=== PATIENT | female | born 1955 | race Caucasian/White ===

== ENCOUNTER 2016-12-04 13:09 | Inpatient (IN) ==
[2016-12-04] MEDS ORDERED: PHENERGAN IV ONE ×3 (15:04→15:25)
[2016-12-04] MEDS ORDERED: SODIUM CHLORIDE 0.9% INJ ONE ×3 (15:04→15:25)
[2016-12-04] MEDS ORDERED: MORPHINE IV ONE ×2 (15:04→18:19)
--- NOTE | 2016-12-04 15:04 | PROVIDER DOCUMENTATION ---
HPI-Rash/Wound/ReCheck - General Chief Complaint: Abscess Stated Complaint: GENERAL Time Seen by Provider: 12/04/16 14:11 Source: patient Allergies/Adverse Reactions: Allergies Allergy/AdvReac Type Severity Reaction Status Date / Time No Known Allergies Allergy Verified 12/04/16 14:59 Home Medications: Home Medication List Medication Instructions Recorded Confirmed Last Taken Type No Home Medications 12/04/16 12/04/16 Unknown History - History of Present Illness-Dermatology Nature of Presenting Problem: 61 y/o WF c/o abscess to R pubic region x 1 week, worse in last 2 days. Pt states it started as what looked like a spider bite, then spread to her RLQ of her abdomen and is now extremely painful. States drained on her own at home during the first few days, but unable to drain it now. Review of Systems - Adult - REVIEW OF SYSTEMS - ADULT Constitutional: reports: no symptoms reported. denies: chills, fever Eyes: reports: no symptoms reported. denies: blurred vision, double vision Ears, Nose, Mouth & Throat: reports: no symptoms reported. denies: ear pain, nose pain Cardiovascular: reports: no symptoms reported. denies: chest pain, palpitations Respiratory: reports: no symptoms reported. denies: dyspnea on exertion, shortness of breath Gastrointestinal: reports: see HPI, abdominal pain. denies: constipation, diarrhea, nausea, vomiting Genitourinary: reports: no symptoms reported. denies: dysuria, frequency Musculoskeletal: reports: no symptoms reported. denies: joint pain, muscle aches Integumentary: reports: see HPI, other. denies: nail changes Neurological: reports: no symptoms reported. denies: numbness, paresthesia Psychiatric: reports: no symptoms reported Endocrine: reports: no symptoms reported. denies: cold intolerance, heat intolerance Hematologic/Lymphatic: reports: no symptoms reported. denies: easy bruising, prolonged bleeding Allergic/Immunologic: reports: no symptoms reported All Other Systems: Reviewed and Negative Past History - Adult - PAST MEDICAL HISTORY-ADULT Review of Records: reports: Nursing Assessment Review, Medications Reviewed - SOCIAL HISTORY Smoking: denies Living Situation: family Physical Exam-General - PHYSICAL EXAM-ADULT Initial Vital Signs Reviewed: Yes - CONSTITUTIONAL General Appearance: alert, mild distress - EYES Eyes: pink conjunctivae - HEAD, EARS, NOSE, MOUTH & THROAT HENMT: normocephalic/atraumatic, moist mucous membranes - NECK Neck: supple, normal inspection - RESPIRATORY Respiratory: lungs clear, normal breath sounds. negative: crackles, rales, rhonchi - CARDIOVASCULAR Cardiovascular: tachycardia. negative: regular rate, rhythm, bradycardia - GASTROINTESTINAL (ABDOMEN) Abdominal Exam: normal bowel sounds, soft, other (20 cm x 12 cm of redness and induration to RLQ, extending to R labia majora). negative: distended, guarding , rigid - LYMPHATIC Lymphatic: inguinal node tender - MUSCULOSKELETAL Back Exam: no CVA tenderness Extremity: normal gait - SKIN Integumentary: normal color, normal turgor, warm/dry - NEUROLOGIC Neurologic: negative: aphasia - PSYCHIATRIC Psych/Mental Status: normal mood/affect, normal thought content, normal thought process, oriented x 3 Progress - PLAN OF CARE/RESULTS Progress/Plan/Lab Results: Laboratory Tests 12/04/16 12/04/16 12/04/16 15:12 15:12 15:12 WBC 13.52 H RBC 4.70 Hgb 13.7 Hct 40.8 MCV 86.8 MCH 29.1 MCHC 33.6 RDW Std Deviation 13.2 Plt Count 211 MPV 10.0 Immature Gran % (Auto) 0.2 Neut % (Auto) 79.6 H Lymph % (Auto) 9.8 L Major % (Auto) 10.1 H Eos % (Auto) 0.2 Baso % (Auto) 0.1 Immature Gran # (Auto) 0.03 Neut # (Auto) 10.76 H Lymph # (Auto) 1.32 Major # (Auto) 1.36 H Eos # (Auto) 0.03 Baso # (Auto) 0.02 Sodium 135 L Potassium 4.3 Chloride 96 L Carbon Dioxide 22 L Anion Gap 17 BUN 16 Creatinine 0.9 Estimated GFR/1.73 m2 > 60 BUN/Creatinine Ratio 18 Glucose 114 H Calculated Osmolality 272 Calcium 9.3 Total Bilirubin 1.00 AST 11 ALT 8 L Alkaline Phosphatase 107 H Total Protein 7.5 Albumin 3.8 Globulin 3.7 Albumin/Globulin Ratio 1.0 Plasma Lactate 2.5 H Orders Category Date Time Status Saline Loc NOW Care 12/04/16 14:[address] ABD/PELVIS W/ IV CONT ONLY [CT] Stat Exams 12/04/16 15:26 Taken BLOOD CULTURE [BLDCUL] Stat Lab 12/04/16 17:02 Results CBC WITH ELECTRONIC DIFF [HEME] Stat Lab 12/04/16 15:12 Completed CMP [COMPREHENSIVE METABOLIC PANEL] [CHEM] Stat Lab 12/04/16 15:12 Completed LACTATE, PLASMA [CHEM] Stat Lab 12/04/16 15:12 Completed 0.9% Sodium Chloride Inj [Ns] 1,000 ml Med 12/04/16 16:34 Discontinued IV 999 mls/hr CefTRIAXONE 2 GM/NS [Rocephin 2 gm/Ns] 50 ml Med 12/04/16 16:34 Discontinued IV NOW Ketorolac [Toradol] Med 12/04/16 15:25 Discontinued 30 mg IV NOW ONE Meropenem [Merrem] 1 gm Med 12/04/16 16:39 Discontinued 0.9% Sodium Chloride Inj [Ns] 50 ml IV NOW Morphine Med 12/04/16 15:04 Discontinued 2 mg IV NOW ONE Promethazine [Phenergan] Med 12/04/16 15:25 Discontinued 12.5 mg IV NOW ONE Promethazine [Phenergan] Med 12/04/16 15:04 Discontinued 25 mg IV NOW ONE Promethazine [Phenergan] Med 12/04/16 15:18 Discontinued 25 mg IV NOW ONE Sodium Chloride 0.9% Med 12/04/16 15:04 Discontinued 10 ml INJ NOW ONE Sodium Chloride 0.9% Med 12/04/16 15:18 Discontinued 10 ml INJ NOW ONE Sodium Chloride 0.9% Med 12/04/16 15:25 Discontinued 10 ml INJ NOW ONE Vancomycin 1 gm/Ns 250 ml Med 12/04/16 16:39 Discontinued IV NOW Vital Signs Temp Pulse Resp BP Pulse Ox 12/04/16 13:13 98.1 F 109 H 18 135/79 100 No Known Allergies Allergy (Verified 12/04/16 14:59) No Home Medications 12/04/16 Laboratory 12/04/16 12/04/16 12/04/16 15:12 15:12 15:12 WBC 13.52 H RBC 4.70 Hgb 13.7 Hct 40.8 MCV 86.8 MCH 29.1 MCHC 33.6 RDW Std Deviation 13.2 Plt Count 211 MPV 10.0 Immature Gran % (Auto) 0.2 Neut % (Auto) 79.6 H Lymph % (Auto) 9.8 L Major % (Auto) 10.1 H Eos % (Auto) 0.2 Baso % (Auto) 0.1 Immature Gran # (Auto) 0.03 Neut # (Auto) 10.76 H Lymph # (Auto) 1.32 Major # (Auto) 1.36 H Eos # (Auto) 0.03 Baso # (Auto) 0.02 Sodium 135 L Potassium 4.3 Chloride 96 L Carbon Dioxide 22 L Anion Gap 17 BUN 16 Creatinine 0.9 Estimated GFR/1.73 m2 > 60 BUN/Creatinine Ratio 18 Glucose 114 H Calculated Osmolality 272 Calcium 9.3 Total Bilirubin 1.00 AST 11 ALT 8 L Alkaline Phosphatase 107 H Total Protein 7.5 Albumin 3.8 Globulin 3.7 Albumin/Globulin Ratio 1.0 Plasma Lactate 2.5 H Discussed pt with Dr. Hewitt; she agreed with tx plan and admission, once CT results available. SEPSIS protocol initiated. Discussed admission with pt and family; they agreed with tx plan. - CT/MRI 1 CT Study: Abdomen, Pelvis Impression: See EMR Report (cellulitis. No abscess. Normal appendix. No bowel obstruction. Multiple bilateral renal stones. No hydronephrosis. -per Dr. Coates) - CONSULTS/PCP/HOSPITALIST Notification #1 *Consult/PCP/Hospitalist*: Dr. Rand Time Discussed: 18:26 Reason/Comments: sepsis, cellulitis Consult Disposition: Admit Departure - Departure Time of Disposition Order: 18:05 DIAGNOSIS: Renal stones Cellulitis Qualifiers: Site of cellulitis: trunk Site of cellulitis of trunk: abdominal wall Qualified Code(s): L03.311 - Cellulitis of abdominal wall Sepsis Qualifiers: Sepsis type: sepsis due to unspecified organism Qualified Code(s): A41.9 - Sepsis, unspecified organism DIAGNOSIS: (Ruled Out): Abscess Disposition: ADMITTED INPATIENT 09 Certified Medical Emergency: Emergent Condition: Stable Referrals: None,PCP [Primary Care Provider] - Attestation - Physician/ JIGNESH Attestation Patient care was provided by Advanced Practice Provider:: Yes Advanced Practice Provider:: Eulalia Dunlap Advanced Practice Provider documentation review:: The Mid-level provider documentation, treatment plan and medical decision making was reviewed by the physician who agrees with all treatment and medical decision making by the P.
[2016-12-04] MEDS ORDERED: TORADOL IV ONE (15:25)
[2016-12-04 15:34] LABS: MANUAL DIFF NEEDED? NO
[2016-12-04 15:46] LABS: BASO% 0.1 % (0.0-0.8); EOS# 0.03 X1000 (0.0-0.7); EOS% 0.2 % (0.0-10.0); HEMATOCRIT 40.8 % (37.0-47.0); HEMOGLOBIN 13.7 g/dL (12.0-16.0); IMM GRAN# 0.03 X1000 (0.0-0.04); IMM GRAN% 0.2 % (0.0-0.5); LYMPH# 1.32 X1000 (1.2-3.4); LYMPH% 9.8 % (20.5-51.1); MCH 29.1 PG (27-31); MCHC 33.6 g/dL (33-37); MCV 86.8 FL (81-99); MONO# 1.36 X1000 (0.11-0.59); MONO% 10.1 % (1.7-9.3); NEUT% 79.6 % (42.2-75.2); PLT 211 X1000 (130-400)
[2016-12-04 16:09] LABS: AGAP 17; ALBUMIN 3.8 g/dL (3.5-5.0); ALKALINE PHOSPHATASE 107 U/L (32-104); BUN 16 mg/dL (8-22); CALCIUM 9.3 mg/dL (8.8-10.2); CHLORIDE 96 mmol/L (98-107); COSMO 272; GOT 11 U/L (10-30); GPT 8 U/L (10-36); POTASSIUM 4.3 mmol/L (3.5-5.1); SODIUM 135 mmol/L (136-145); TCO2 22 mmol/L (25-35); TOTAL PROTEIN 7.5 g/dL (6.3-8.3)
[2016-12-04] MEDS ORDERED: NS 1,000 ML IV ONE ×2 (16:34→18:36)
[2016-12-04] MEDS ORDERED: ROCEPHIN 2 GM/NS 50 ML IV ONE (16:34)
[2016-12-04] MEDS ORDERED: VANCOMYCIN 1 GM/NS 250 ML IV ONE (16:39)
[2016-12-04] MEDS ORDERED: MERREM 1 GM in NS 50 ML IV ONE (16:39)
[2016-12-04] MEDS ORDERED: ZOFRAN ODT PO ONE (18:37)
[2016-12-04] MEDS ORDERED: TYLENOL PO ONE (18:37)
--- NOTE | 2016-12-04 20:14 | Diag Imaging Result Document ---
PROCEDURE NAME: CT ABD/PELVIS W/ IV CONT ONLY - 12/04/2016 CT ABDOMEN AND PELVIS WITH INTRAVENOUS CONTRAST FINDINGS: There is mild fatty infiltration of the liver. There are several tiny, hypodense hepatic lesions which may simply be cysts. The liver is mildly prominent. Normal spleen, pancreas, adrenal glands, and gallbladder. There are multiple bilateral renal stones. These have increased in size and number since the prior study of 05/29/11. No hydronephrosis. No aortic aneurysm. Moderate atherosclerosis. No bowel obstruction. Normal appendix. No abscess. The urinary bladder is distended and appears normal. The uterus has been removed. The ovaries are small or have been removed. No pelvic mass. There are subcutaneous inflammatory changes in the anterior right pelvic wall, extending to the upper right labia. No fluid collection. No abscess. No free air. There are only small inguinal lymph nodes. IMPRESSION : 1. Abdominal wall cellulitis, but no abscess. 2. Mildly prominent liver with what appears to be several tiny cysts. 3. Multiple bilateral renal stones which have increased in size and number since the prior exam. A preliminary report was given at 5:53 p.m.
[2016-12-04] MEDS ORDERED: NS 500 ML IV ONE (22:19)
[2016-12-05] MEDS ORDERED: VANCOMYCIN IV PER PHARMACY MISC SCH (00:14)
[2016-12-05] MEDS ORDERED: ZOFRAN IV PRN (00:14)
[2016-12-05] MEDS ORDERED: NS 1,000 ML IV SCH (00:14)
[2016-12-05] MEDS: MORPHINE IV PRN ×2 (00:17→06:05)
[2016-12-05] MEDS: SODIUM CHLORIDE 0.9% INJ SCH ×3 (00:27→23:05)
[2016-12-05] MEDS: PHENERGAN IV PRN (00:27)
[2016-12-05] MEDS: PROTONIX IV SCH ×2 (00:38→23:06)
[2016-12-05] MEDS: TORADOL IV SCH ×5 (00:38→23:05)
[2016-12-05] MEDS: LOVENOX SUBQ SCH (00:39)
[2016-12-05] MEDS ORDERED: VANCOMYCIN 1 GM/NS 250 ML IV ONE (02:00)
--- NOTE | 2016-12-05 02:36 | HISTORY AND PHYSICAL ---
PRIMARY CARE PROVIDER: Dr. Duncan Unger. CHIEF COMPLAINT: Abscess. HISTORY OF PRESENT ILLNESS: A 61-year-old female with no relevant past medical history presents to the emergency room complaining of swelling in the groin for the past week and 4 days. Stated that it started as a small pimple with a head. She thought that she had been bitten by a spider. She lanced it at home with initially draining. At any rate, over the next week or so, it began having increasing redness, pain and swelling. She has had nausea and vomiting as well as chills. She states that the pain is 10/10. It spreads from her right labia major extending upwards to her right lower quadrant. There is roughly 20 x 12 cm of redness and induration. She was given IV antibiotics as well as nausea medicine in the emergency room. A CT scan was obtained and ruled out abscess. She will be admitted for cellulitis for further evaluation and treatment. PAST MEDICAL HISTORY: Kidney stones. PAST SURGICAL HISTORY: Hysterectomy, tonsillectomy. SOCIAL HISTORY: Lives alone. 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 She quit smoking 5 years ago but prior to that had smoked cigarettes since the age of 16. She is a social drinker. Drinks 1-2 beers a week but states that this does not necessarily happen every week. Denies illicit drug use or abuse. FAMILY HISTORY: Both her mother and her father have had cerebrovascular accidents. They also have hypertension and hyperlipidemia. ALLERGIES: No known drug allergies. HOME MEDICATIONS: No home medications. REVIEW OF SYSTEMS: A 14-point review of systems conducted with patient. All negative except for listed above in the HPI. PHYSICAL EXAMINATION: VITAL SIGNS: Temperature 100.8, temperature max 102.5, pulse 95, respirations 16, blood pressure 85/54, MAP 70, oxygen saturation 95% on 2 L nasal cannula. GENERAL: This is a pleasant 61-year-old female lying in the ER stretcher in no acute distress. Seems somewhat lethargic related to previous pain medication and Phenergan administration for nausea. she answers all questions appropriately. She is in no acute distress at this time. HEENT: Head is atraumatic, normocephalic. Pupils equal, round, reactive to light. Extraocular eye movement is intact. Sclerae anicteric. Conjunctivae not pale. Oral mucosa is mildly dry and tacky. Otherwise normal ENT assessment. NECK: Supple. No JVD. No thyromegaly. Trachea is midline. CARDIAC: Regular rhythm. S1, S2 appreciated. No murmurs, gallops or rubs. LUNGS: Mildly decreased bilaterally. No rhonchi, wheezes, rales. Symmetric rise and fall respirations. ABDOMEN: Soft, nondistended. Tender in the right lower quadrant and suprapubic area with erythema, induration and warmth to this area. EXTREMITIES: No clubbing, cyanosis or edema. Decreased pedal pulses bilaterally. GENITOURINARY: The patient voids. On visualization, the patient's right labia majora was noted as having erythema and induration. SKIN: Warm, dry, and intact except for area of erythema and induration noted above in genitourinary and abdominal examination. NEUROLOGIC: Mildly lethargic related to pain and nausea medications. Awakens easily to verbal stimulus. Follows all commands. Is alert and oriented x4. Cranial nerves II through XII are grossly intact. DIAGNOSTIC DATA: CT of the abdomen and pelvis ruled out abscess, did note cellulitis. WBC 13.52, hemoglobin 13.7, hematocrit 40.8, platelet count 211. Sodium 135, potassium 4.3, chloride 96, carbon dioxide 22, BUN 16, creatinine 0.9, glucose 114. Plasma lactate on arrival was 2.5. After fluid bolusing, it is down to 0.9. ASSESSMENT AND PLAN: 1. Cellulitis of the right lower abdomen extending down into the right labia majora. The patient was given Rocephin, Merrem and vancomycin in the emergency room. Will continue Rocephin and vancomycin. Recheck CBC and BMP in a.m. 2. Sepsis secondary to #1. The patient's fever has been brought under control after fluid bolusing. Her plasma lactate is back to normal. On reassessment of the patient after bolusing, she appears to be euvolemic at this time. The patient, however, is not taking adequate intake by mouth. Will continue normal saline at 125 mL per hour with strict I's and O's. 3. Intractable pain secondary to #1. Will give Toradol 50 mg IV every 6 hours x2 days as the patient dyspnea on exertions not have any overt bleeding risk and is not in any type of acute or chronic renal failure that would cause NSAIDs to be contraindicated. Will also place morphine 2 mg IV every 3 hours p.r.n. on her medication profile for additional pain management. 4. Nausea and vomiting. Will alternate Phenergan and Zofran to control patient's nausea. Will also place her on Protonix 40 mg IV daily during her hospital stay to help with any gastritis secondary to nausea and vomiting, also as a precaution since the patient will be placed on 2 days of NSAID treatment. 5. Febrile illness secondary to #1. Will treat with Tylenol 650 every 6 hours. At this time, the Toradol will also be helpful in managing fevers. 6. Additional comments and orders. As noted above, the patient's laboratory data will be rechecked. She has been placed on antibiotics pending blood cultures. If the patient is not responding properly to antibiotics, will consider consulting German Tanner MD, infectious disease provider, for further help with antibiotic management. Will also place on Lovenox 40 mg subcutaneously every 24 hours for VTE prophylaxis. Further recommendations per patient's clinical course. Dictated by MERISSA Moreno for Mann Guajardo MD
[2016-12-05 06:22] LABS: MANUAL DIFF NEEDED? NO
[2016-12-05 07:15] LABS: CALCIUM 8.4 mg/dL (8.8-10.2); POTASSIUM 3.6 mmol/L (3.5-5.1)
[2016-12-05 07:17] LABS: BASO% 0.2 % (0.0-0.8); EOS# 0.04 X1000 (0.0-0.7); EOS% 0.3 % (0.0-10.0); HEMATOCRIT 33.2 % (37.0-47.0); IMM GRAN# 0.03 X1000 (0.0-0.04); IMM GRAN% 0.2 % (0.0-0.5); LYMPH# 0.87 X1000 (1.2-3.4); LYMPH% 6.5 % (20.5-51.1); MCH 29.3 PG (27-31); MCHC 33.1 g/dL (33-37); MCV 88.3 FL (81-99); MONO# 1.34 X1000 (0.11-0.59); MONO% 10.1 % (1.7-9.3); MPV 10.3 FL (7.4-10.4); NEUT% 82.7 % (42.2-75.2); PLT 173 X1000 (130-400); RBC 3.76 XMIL (4.2-5.4)
[2016-12-05] MEDS: NS 1,000 ML IV SCH ×3 (08:50→21:49)
--- NOTE | 2016-12-05 09:39 | PROGRESS NOTE ---
DATE: 12/05/2016 SUBJECTIVE: The patient notes she is feeling a little bit better. Still having pain but notes overall the pain is slightly improved. Denies any worsening of her redness or swelling. OBJECTIVE: Vital Signs: Reviewed. Temperature 100.5 degrees current, pulse 94, respiratory 20, BP 100/49, saturation 98% on 2 L. General: Patient is awake, alert. She is in no distress. She is pleasant to talk with. Speech is regular. Memory is intact. Neck: Supple. CV: Regular rate. Chest: Relatively clear. Abdomen: Soft, nondistended. Skin: Noted to have erythema and induration in the right lower abdominal quadrant and upper pelvic region. Unchanged from yesterday's exam. PLAN: We will decrease her IV fluids to 75. We will continue her on Toradol p.r.n., vancomycin, and Rocephin. We will add [place] for pain. Continue Lovenox. Further orders as needed.
[2016-12-05] MEDS: TYLENOL PO PRN (12:13)
[2016-12-05] MEDS ORDERED: MOTRIN PO ONE (14:51)
[2016-12-05] MEDS: ROCEPHIN 1 GM/NS 50 ML IV SCH (15:18)
[2016-12-05] MEDS ORDERED: MORPHINE IV ONE (15:55)
[2016-12-05] MEDS: VANCOMYCIN 1,350 MG in NS 250 ML IV SCH (20:31)
--- NOTE | 2016-12-05 23:50 | HISTORY AND PHYSICAL ---
HISTORY: Ms. Sheldon is a 61-year-old white female, 4, para 4, who was admitted to [facility] by hospitalist due to cellulitis of the groin. The patient reports having pustule a few days ago which has progressively worsened. The patient reports yesterday having fevers and chills and having pain in her groin. The patient was admitted last evening. White count was 13,000 with a fever of 102.7. A CT scan was performed which showed cellulitis but no distinct abscess. The patient was started on vancomycin as well as Rocephin. The patient denies any history of previous infections. The patient denies history of diabetes and has a family physician who does routine diabetic testing. PAST MEDICAL HISTORY: None. PAST SURGICAL HISTORY: Vaginal hysterectomy per Dr. Noe. ALLERGIES: None known. SOCIAL HISTORY: Patient is a smoker. 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 PHYSICAL EXAMINATION: GENERAL: White female in no apparent distress. VITAL SIGNS: Temperature 99.5. T max was 103. ABDOMEN: Soft and nontender. GENITOURINARY: External genitalia reveals cellulitis extending from the right labia into the right groin and over to the right hip that was tender to exam. There was no area that pointed and no distinct fluctuance, however, I could not identify any area that was a pustule or any area of drainage. No evidence of Bartholin's abscess or follicular abscess as origin. PLAN: Right now I agree with current management. Blood cultures are pending. The patient does report her symptoms have improved and the nurses objectively say that erythema has improved throughout the day. The margins of the erythema were marked with skin marker. I did discuss surgery with the patient and her family should the condition worsen although right now with the cellulitis, I think surgery would be of questionable benefit without any area of obvious fluctuance. We will reevaluate patient in the morning. I did discuss the patient with Dr. Noe who will see her in the morning at some point. The patient will be made n.p.o. pranav.
[2016-12-06] MEDS: LOVENOX SUBQ SCH (00:15)
[2016-12-06] MEDS: PROTONIX IV SCH (05:28)
[2016-12-06] MEDS: TORADOL IV SCH ×4 (05:29→17:13)
[2016-12-06 05:36] LABS: HEMATOCRIT 31.6 % (37.0-47.0); HEMOGLOBIN 10.4 g/dL (12.0-16.0); MCHC 32.9 g/dL (33-37); MPV 10.4 FL (7.4-10.4); RBC 3.59 XMIL (4.2-5.4)
[2016-12-06 05:51] LABS: ALBUMIN 2.4 g/dL (3.5-5.0); CALCIUM 8.3 mg/dL (8.8-10.2); MAGNESIUM 1.7 mg/dL (1.5-2.7); POTASSIUM 3.5 mmol/L (3.5-5.1); TOTAL BILIRUBIN 0.4 mg/dL (0.20-1.00); TOTAL PROTEIN 5.3 g/dL (6.3-8.3)
[2016-12-06] MEDS: NS 1,000 ML IV SCH ×2 (06:57→12:34)
[2016-12-06] MEDS ORDERED: DILAUDID PO PRN (08:19)
--- NOTE | 2016-12-06 08:44 | PROGRESS NOTE ---
DATE: 12/06/2016 SUBJECTIVE: The patient notes she is feeling tremendously better this morning. Denies any current fevers or chills. Denies any chest pain. States that her pain is tremendously improved. Her redness is improved. Notes that she is now able to get out of bed to go to the restroom without intense excruciating pain. Denies any nausea. OBJECTIVE: Vital Signs: Temp 99, pulse 82, respiratory 20, BP 119/64, satting 100% on room air. General: Patient is a well developed female, who is currently in no respiratory distress. She is awake, alert. Neck: Supple. CV: Regular rate. Chest: Relatively clear. Skin: She is noted to have much less erythema; it is less than it was yesterday. Erythema is not as dark. It is no longer touching the blind that was demarcating the outside border of the redness. It is also much less tender. ASSESSMENT: 1. Cellulitis, right lower abdomen, extending to the right labia majora, definitely improving. 2. Fever. Patient was noted to have significant fever yesterday at 103. It appears that her fever has broken. She has been afebrile for the past 8 or so hours. 3. Intractable pain, much improved. 4. Nausea and vomiting, resolved. 5. Leukocytosis. 6. Mild protein calorie malnutrition. PLAN: Given the fact the patient is currently afebrile, her erythema and edema of the area is definitely decreased, her pain is increased, it certainly is much less likely that she will require I and D. At this point, will allow her to begin to drink and continue her on vancomycin, continue Rocephin. I definitely appreciate LOOP SEWER's input yesterday. We will change the [place] to Dilaudid to see if this will help with her pain any better.
[2016-12-06] MEDS: TYLENOL PO PRN ×2 (09:22→17:10)
--- NOTE | 2016-12-06 09:33 | PROGRESS NOTE ---
DATE: 12/06/2016 SUBJECTIVE: Patient is alert and oriented x3. She is resting in bed, eating breakfast. T-max this morning is 100.6 which is down from 102.7 yesterday. Patient states that she is feeling better. She feels that the swelling is going down in the cellulitis region. ASSESSMENT AND PLAN: Agree with intravenous antibiotic therapy as chosen by Dr. Tenorio. I agree with continued intravenous antibiotic therapy until afebrile 24 hours and then possible change to oral at that time. We will continue to follow along.
[2016-12-06] MEDS: ROCEPHIN 1 GM/NS 50 ML IV SCH (17:04)
[2016-12-06] MEDS: NORCO-10 PO PRN (17:10)
[2016-12-06] MEDS: VANCOMYCIN 1,350 MG in NS 250 ML IV SCH (21:55)
[2016-12-07] MEDS: SODIUM CHLORIDE 0.9% INJ SCH (00:37)
[2016-12-07] MEDS: PROTONIX IV SCH (00:37)
[2016-12-07] MEDS: LOVENOX SUBQ SCH (00:37)
[2016-12-07] MEDS: NS 1,000 ML IV SCH (00:40)
[2016-12-07] MEDS: NORCO-10 PO PRN ×4 (04:53→19:27)
--- NOTE | 2016-12-07 08:34 | PROGRESS NOTE ---
DATE: 12/07/2016 SUBJECTIVE: The patient notes that she is feeling a lot better this morning. She is able to sit up with much less pain, although she is still hurting some. Notes the pain medication works. She states that she has been really anxious last night. Did not sleep well. She was afraid that she may have to have surgery this morning to drain the area. OBJECTIVE: Vital Signs: Reviewed. Temperature 98 degrees, pulse 80, respiratory rate 18, blood pressure 131/72, sat 99% on room air. General: Patient well developed, well nourished. She is currently in no real respiratory distress. She is awake, alert, oriented. Neck: Supple. Cardiovascular: Regular rate. Chest: Relatively clear. Abdomen: Soft. Skin: She is noted to have much less erythema than she did yesterday morning. It is on a much decreased from the previous marked area. It has less warmth, less tenderness. ASSESSMENT: 1. Cellulitis of the right lower abdomen, extending to the right labia majora that continues to improve. She currently is on Rocephin and vancomycin. We will talk with Dr. Tanner, Infectious Disease, to get his opinion home medication therapy. Certainly feel as though we can stop the vancomycin at this point. 2. Pain continues to improve. 3. Nausea and vomiting, resolved. 4. Fever. Patient's T-max yesterday was 100.6, which is a definite improvement from the day before. 5. Sepsis, secondary to cellulitis of unknown origin. PLAN: We will continue patient on current medications. She is tolerating p.o. pain medications well. Hopefully, Dr. Tanner will have recommendations for p.o. antibiotics and home in the next day or so.
[2016-12-07] MEDS: ROCEPHIN 1 GM/NS 50 ML IV SCH (15:11)
[2016-12-07] MEDS: VANCOMYCIN 1,350 MG in NS 250 ML IV SCH (20:31)
[2016-12-08] MEDS: LOVENOX SUBQ SCH ×2 (00:53→23:53)
[2016-12-08] MEDS: PROTONIX IV SCH (00:57)
[2016-12-08] MEDS: NORCO-10 PO PRN ×4 (00:57→23:49)
[2016-12-08] MEDS: TYLENOL PO PRN (10:34)
[2016-12-08] MEDS: ROCEPHIN 1 GM/NS 50 ML IV SCH (15:55)
--- NOTE | 2016-12-08 17:47 | PROGRESS NOTE ---
DATE: 12/08/2016 SUBJECTIVE: Patient states she is feeling a lot better. She is able to sit and move with much less pain although she still hurts some. She has had some anxiety over the last 24 hours and has not slept well in the hospital. OBJECTIVE: Vital Signs: Blood pressure is 131/66 with a heart rate of 56, respirations are 20, temperature is 98.2 degrees oral with room air saturations of 97%. Cardiovascular: Regular rate and rhythm. S1, S2 appreciated. Pulmonary: Breath sounds are clear. No increased work of breathing noted. Gastrointestinal: Abdomen is soft, nontender, nondistended with bowel sounds in all 4 quadrants. Extremities: No clubbing, cyanosis, or edema. Calves are nontender. Pulses are palpable x4. ASSESSMENT: 1. Cellulitis of the right lower abdomen extending to the right labia majora. It continues to improve. She is on Rocephin and vancomycin. We are waiting on Dr. Tanner with Infectious Disease to evaluate the patient for his opinion on home medical therapy. 2. Pain. This does continue to improve. 3. Nausea and vomiting resolved. 4. Fever. Patient's T-max was 99.6. 5. Sepsis secondary to cellulitis of unknown origin. We will continue with the patient's current medical therapy. Hopefully she will be evaluated by Dr. Tanner and he will feel that we can send her home on p.o. antibiotics, further treatments. Dictated by MERISSA Walsh for Javi Tenorio MD
--- NOTE | 2016-12-08 20:30 | CONSULTATION ---
DATE OF CONSULTATION: 12/08/2016 CONCLUSION: The patient has a has a severe cellulitis in the right mons pubis area involving the labia. RECOMMENDATIONS: I agree with decision to treat the patient with vancomycin. I have substituted Invanz for Rocephin. I think the patient should continue her IV antibiotics. My plan would be to send her home on IV antibiotics. I have consulted [facility] to supply the home IV antibiotic. I have requested that a PICC be placed and then I have requested that the patient see me in the office 3 weeks after discharge. DISCUSSION: The patient noticed swelling in the right mons pubis area and labia. She did not injure herself. She did not actually see an insect but she thinks she might have had an insect bite that started it. She has been admitted to the hospital. The area has decreased but it still remains erythematous, indurated and tender. The patient's laboratory studies show a creatinine of 1, a GFR of 57. CBC with a white count of 15,040, hemoglobin 10.4, and platelet count 184,000 . PAST MEDICAL HISTORY/REVIEW OF SYSTEMS: Eyes and ears: She denies difficulty hearing or seeing. Neck: No stiffness. Respiratory: No cough or shortness of breath. Cardiac: No chest pain or palpitations. GI: No nausea, vomiting, or diarrhea. : No dysuria or flank pain. Endocrine: She does not have diabetes or thyroid disease. Hematologic: She does not have anemia or bleeding tendency. Neurologic: She does not have seizures. She does not have motor or sensory loss. Integument: No rash. The remainder of the patient's review of systems was completed and was negative. PROCESSING TECH HISTORY: She is a 4, para 4, AB 0. She has had a hysterectomy. PREVIOUS HOSPITALIZATIONS AND OPERATIONS: She has had 4 labor and deliveries, a hysterectomy and tonsillectomy. MEDICAL DISEASES: Negative for diabetes mellitus and hypertension. INFECTIOUS DISEASE HISTORY: Positive for pneumonia. Negative for UTI. FAMILY HISTORY: Positive for hypertension, myocardial infarction and stroke. SOCIAL HISTORY: [place] She is . She has a dog as a pet. 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 HOME MEDICATIONS: She is on no home medications. She does not smoke cigarettes, drink alcohol products or abuse drugs. PHYSICAL EXAMINATION: Vital Signs: Temperature is 99.4 degrees, pulse 52, respirations 16, blood pressure 142/70. General: This is a healthy-appearing, middle-aged female. She is in no acute distress. Head/eyes/ears/nose/throat: She can hear my spoken words and see near objects. No drainage noted from the nose or ears. Neck: No meningismus. Lungs: Clear to auscultation. Cardiovascular: Regular heart rate. I did not hear a murmur. Abdomen: Soft, nontender. Pelvis: The patient had erythema and induration in the mons pubis and right labial area. Neurologic: The patient is alert. She can move her extremities. There is no tremor. Her sensation is intact to touch. Her memory, as regarding her medical history was good. Integument: No rash noted. PRESENT ILLNESS: The patient had a CT scan of the abdomen. It was read as showing abdominal wall cellulitis. Thank you for the consult.
[2016-12-08] MEDS: VANCOMYCIN 1,500 MG in NS 250 ML IV SCH (20:32)
[2016-12-08] MEDS ORDERED: INVANZ ONE (23:14)
[2016-12-08] MEDS ORDERED: NS 50 ML ONE (23:14)
[2016-12-08] MEDS ORDERED: INVANZ IV ONE (23:15)
[2016-12-08] MEDS: INVANZ 1 GM/NS 50 ML IV SCH (23:23)
[2016-12-08] MEDS: PROTONIX PO SCH (23:53)
[2016-12-09] MEDS: NORCO-10 PO PRN ×3 (05:11→21:18)
[2016-12-09] MEDS: PHENERGAN IV PRN ×3 (09:30→21:18)
[2016-12-09] MEDS ORDERED: ZOFRAN PO PRN ×2 (14:14→14:16)
[2016-12-09] MEDS ORDERED: NORCO-10 PO PRN (14:14)
[2016-12-09] MEDS: VANCOMYCIN 1,500 MG in NS 250 ML IV SCH (14:30)
--- NOTE | 2016-12-09 17:56 | PROGRESS NOTE ---
DATE: 12/09/2016 SUBJECTIVE: The patient states that she is feeling better. She seems to improve every day. She still has pain with movement and standing. She continues to complain of difficulty sleeping while in the hospital. OBJECTIVE: Vital Signs: Blood pressure is 139/68 with a heart rate of 54, respirations are 18, temperature is 98.8 degrees oral with room air saturations of 99%. Cardiovascular: Regular rate and rhythm. S1, S2 appreciated. Pulmonary: Breath sounds are clear. No increased work of breathing noted. Gastrointestinal: Abdomen is soft, nontender, nondistended with bowel sounds in all 4 quadrants. Extremities: No clubbing, cyanosis, or edema. Calves are nontender. Pulses are palpable x4. Right groin into the labia has less erythema. The size is decreasing. She is moving better. ASSESSMENT: 1. Cellulitis of the right lower abdomen extending to the right labia majora. This continues to improve daily. We will continue with Merrem and vancomycin per Dr. Tanner' recommendations. 2. Pain, this is continuing to improve, we will continue with the current regimen. 3. Nausea and vomiting resolved. 4. Fever. Her T-max has been 99.6 over the last 24 hours. 5. Sepsis secondary to cellulitis of unknown origin improving. Dictated by MERISSA Walsh for Javi Tenorio MD
[2016-12-09] MEDS: SODIUM CHLORIDE 0.9% INJ PRN (21:19)
[2016-12-09] MEDS: INVANZ 1 GM/NS 50 ML IV SCH (21:19)
[2016-12-09] MEDS: PROTONIX PO SCH (21:19)
[2016-12-09] MEDS: ZOFRAN ODT PO PRN (21:31)
[2016-12-10] MEDS: LOVENOX SUBQ SCH (00:38)
[2016-12-10] MEDS: SODIUM CHLORIDE 0.9% INJ PRN (03:03)
[2016-12-10] MEDS: PHENERGAN IV PRN (03:03)
[2016-12-10] MEDS: NORCO-10 PO PRN ×3 (03:03→14:14)
[2016-12-10 08:00] VITALS: BP 165/74
[2016-12-10] MEDS: VANCOMYCIN 1,500 MG in NS 250 ML IV SCH (08:11)
[2016-12-10] MEDS: ZOFRAN ODT PO PRN ×2 (08:23→14:14)
[2016-12-10 10:59] LABS: HEMATOCRIT 33.2 % (37.0-47.0); HEMOGLOBIN 11.2 g/dL (12.0-16.0); MCH 29.1 PG (27-31); MCHC 33.7 g/dL (33-37); MCV 86.2 FL (81-99); MPV 9.7 FL (7.4-10.4); RBC 3.85 XMIL (4.2-5.4)
--- NOTE | 2016-12-11 07:42 | DISCHARGE SUMMARY ---
ADMISSION DATE: 12/04/2016 DISCHARGE DATE: 12/10/2016 PRIMARY CARE PHYSICIAN: Dr. Duncan Unger. DIAGNOSES: 1. Cellulitis of the right lower abdomen extending to the right labia majora, improving. 2. Pain improving. 3. Nausea and vomiting resolved. 4. Fever has resolved with a T-max of 99.1 degrees. DIAGNOSTICS: 12/04/2016 CT of the abdomen and pelvis revealed abdominal wall cellulitis but no abscess, mildly prominent liver which appears to be several tiny cysts, mild bilateral renal stones which have increased in size and number since the prior exam. CONSULTS: Dr. German Tanner Infection Control and Dr. Bryant in gynecology. MICROBIOLOGY: Blood cultures have no growth after 5 days. HOSPITAL COURSE: Ms. Sheldon presented to the emergency room complaining of swelling and redness to her right groin into the labia majora. She stated that it started as a small pimple with a head. She did pop it and initially drained, and then over a week or so the redness, pain and swelling began. She had nausea, vomiting, chills, subjective fever prior to coming to the emergency room. CT ruled out an abscess. Blood cultures were negative. She was covered with vancomycin and Merrem antibiotic-arboleda. She has improved with white counts down to 12. They did max at 15. Pain has improved greatly. She has been ambulatory, non limited by pain as was on admission. As she has improved, she wishes to go home and to continue 2 weeks of antibiotics orally. PHYSICAL EXAMINATION: Cardiovascular: Regular rate and rhythm. S1, S2 appreciated. Pulmonary: Breath sounds are clear. No increased work of breathing noted. Gastrointestinal: Abdomen is soft, nontender, nondistended. Bowel sounds in all 4 quadrants. Skin: Warm and dry with slight redness to her right groin. Swelling has greatly decreased. She is not tender to palpation. There is no drainage. DISCHARGE MEDICATIONS: 1. Bactrim DS 1 p.o. b.i.d. for 14 days. 2. Zofran 4 mg q.6 hours p.r.n., #30. 3. Culturelle 1 b.i.d. 4. Clindamycin 300 mg p.o. q.6 hours for 14 days. 5. Lortab 10 1 p.o. q 4-6 hours p.r.n. pain #30 with no refills. PLAN: The patient has been instructed that she will take antibiotics for 14 days. She has been instructed that if symptoms at all worsen as In increasing redness, increasing edema, pain, nausea, vomiting, diarrhea, temperature greater than 100.5, generalized body aches or any concerns that she may have, she needs to call her primary care physician Dr. Duncan Unger, or she could certainly call Dr. German Tanner at his office, that she will certainly need a PICC line with Invanz 1 g every 24 hours to complete a 14 day course. Of course, this can be arranged by Dr. Unger or Dr. Tanner on an outpatient basis. The patient voices understanding of this. She is in agreement. She has been instructed by myself as well as Dr. Tenorio, as well as given written instructions in this. FOLLOWUP: She is to call Dr. Unger Sunday and inform him of events to be seen in 2 weeks, sooner if he wishes. Dr. German Tanner she needs to make an appointment in 3 weeks and to call for any symptoms or concerns prior to this. She is being discharged home in stable condition with family members. TIME SPENT: This is a greater than 30 minute discharge. Dictated by MERISSA Walsh for Javi Tenorio MD
== END 2016-12-10 19:59 | disposition home or self-care (01) | DRG 872 ==
LOC: ED 13:09 → P.MEDSURG 13:10
PROVIDERS: ATTEND Family Medicine
DX: A41.9 Sepsis, unspecified organism (principal); E44.1 Mild protein-calorie malnutrition; L03.311 Cellulitis of abdominal wall; Z87.442 Personal history of urinary calculi; Z87.891 Personal history of nicotine dependence; Z82.3 Family history of stroke; Z82.49 Family history of ischemic heart disease and other diseases of the circulatory system; Z68.25 Body mass index [BMI] 25.0-25.9, adult
CPT/HCPCS: 36415; 74177; 80048; 80053; 80202; 82565; 83605; 83735; 85025; 85027; 87040; 96365; 96367; 96375; C9113; J0696; J1335; J1650; J1885; J2185; J2270; J2405; J2550; J3370; J7030; J7040; J7050; Q9967; S0164